=== PATIENT | male | born 1955 ===

== ENCOUNTER → 2022-09-12 | Outpatient (CLI) | payer SELFPAY | LOC: IHC 10:49 | DX: S91.302D Unspecified open wound, left foot, subsequent encounter (principal); M86.672 Other chronic osteomyelitis, left ankle and foot; B95.62 Methicillin resistant Staphylococcus aureus infection as the cause of diseases classified elsewhere; X58.XXXD Exposure to other specified factors, subsequent encounter | CPT/HCPCS: 87070; 87205 ==

== ENCOUNTER → 2022-11-06 | Outpatient (CLI) | payer OTHER | LOC: LAB FS 17:06 | DX: S91.302D Unspecified open wound, left foot, subsequent encounter (principal); Z89.422 Acquired absence of other left toe(s) | CPT/HCPCS: 87070; 87205 ==